=== PATIENT | female | born 1945 | race Caucasian/White ===

== ENCOUNTER → 2017-02-19 | Outpatient (CLI) | payer OTHER ==
[~2017-02-19] MED LIST: AMOX500C3 PO; ANAS1TAB19 PO; ATOR-24 PO; CALC600T9 PO; FISH OIL; HYDR25TA5; LISI-729 PO; METF500T PO; METO25TA3 PO; OMEP20CA59 PO
[2017-02-19 14:24] VITALS: BP 121/76; PULSE 80; TEMP 36.5; O2SAT 96
--- NOTE | 2017-02-19 15:42 | Radiation Oncology Follow-Up ---
Radiation Oncology Follow-Up Date of Visit Feb 19, 2017. Reason For Visit One-month follow-up and cancer survivorship care plan Radiation Completion Date finished 01-14-2017, utilizing hypo - fractionated Diagnosis (1) Carcinoma of central portion of right breast, estrogen receptor positive Status: Resolved Onset Date: 09/25/2016 Histology Subtype: ductal Stage: l (A) Permanent Comment: Abnormal right breast mammogram Status post core needle biopsy 09/25/2016 Invasive mammary carcinoma grade 1 Estrogen receptor positive, progesterone receptor positive, HER-2/aisha negative Status post needle localization partial mastectomy 10/30/2016 Invasive ductal carcinoma Stage pT1c pN0 M0 Prosigna score 22 Status post completion of radiation therapy 01/14/2017. She received 5130 cGy utilizing hypo-fractionation. Last Edited By: Nevin Moore on Jan 21, 2017 14:14 History of Present Illness Ms. Callejas initially had an abnormal mammogram on 09/12/2016 which revealed scattered fibroglandular densities involving the right breast. The patient was brought back on 09/18/2016 for diagnostic unilateral left mammography with ultrasound imaging which confirmed an irregular mass that measured 13 mm in the greatest dimension and was confirmed by ultrasonography. There is no evidence of axillary lymphadenopathy. The patient underwent an ultrasound-guided core biopsy of the right breast mass on 09/25/2016 which revealed invasive ductal carcinoma that was grade 1 and was estrogen receptor positive, progesterone receptor positive and HER-2 negative. The patient was seen at the multidisciplinary breast cancer clinic at [facility] in [place], [place]. The patient ultimately elected to undergo a right breast lumpectomy and sentinel lymph node biopsy by Dr. Shawnee Baron on 10/30/2016. Pathology revealed invasive ductal carcinoma that was grade 1 and measured 1.5 cm in the greatest dimension; there is no evidence of any lymphovascular space invasion. The pathology report noted that the posterior margin was close however unable to document was positive. The margins were initially positive during surgery however Dr. Baron did reexcise the superior margin to obtain a negative margin. As per Dr. Baron's notes, the patient Dr. Baron stated she could not go any further posteriorly due to the pectoralis fascia suggesting that she was able to obtain negative margins. 2 sentinel lymph nodes were excised in both were negative. The patient did have a Prosigna genetic study completed and the patient's score was 22 which placed her in the low risk category. The patient was seen by Dr. Obdulio Peterson for medical oncology who is recommended anti-hormonal therapy and adjuvant radiation therapy. We are now seeing the patient in consultation. She underwent a CT seen in relation. She was found to be a candidate for hypo- fractionation. Radiation was completed 01/14/2017. She received 5130 cGy. Interim History She's been doing well over this past month. She denies any changes to her breast. She noted no masses or tenderness no change of the axilla. She's had no swelling of her arm. She is seen Dr. webster in medical oncology. She is on anastrozole. She denies side effects. She'll be following up with her breast surgeon also. She currently does not have an appointment scheduled. She plans to go on the [employer] portal and set up an appointment with her. She stated the breast surgeon would be scheduling her for mammography. She will be participating in a clinical trial called "detect". She did not develop any further issues with skin irritation following the completion of her treatment. Allergies Uncoded Allergies: nkda (Allergy, Unknown, none, 12/04/16) Home Medications Scheduled Amoxicillin (Amoxil), 4 CAP PO DIRECTED Anastrozole (Arimidex), 1 TAB PO DAILY Atorvastatin (Lipitor), 1 TAB PO DAILY Calcium Carbonate-Vitamin D (Calcium + D), 1 TAB PO BID Hydrochlorothiazide (Hydrochlorothiazide), DAILY Lisinopril (Zestril), 5 MG PO DAILY Metformin Hcl (Glucophage), 500 MG PO BID Metoprolol Succ (Toprol Xl) (Toprol-Xl), 25 MG PO DAILY Omeprazole (Prilosec), 20 MG PO DAILY [eqlomega 3 fish oil], 2 TABS DAILY Review of Systems Gastrointestinal: Symptoms: WNL Oral: Symptoms: No Problems Respiratory: Symptoms: WNL Urinary: Symptoms: Nocturia Comments: nocturia times 1 Skin: Symptoms: No Problems Other Skin Symptoms: " dry skin " Breast: Right Upper Arm Measurement: 32.5 Right Mid Arm Measurement: 26.5 Right Wrist Measurement: 17.2 Left Upper Arm Measurement: 31.0 Left Mid Arm Measurement: 25.5 Left Wrist Measurement: 16.2 Arm Dominence: Right Patient Cosmetic Evaluation: Excellent Staff Cosmetic Evalaluation: Excellent Additional Notes: She completed a distress management report and answered "no" to all questions. Physical Exam Vital Signs Date Time Temp Pulse Resp B/P (MAP) Pulse Ox O2 Delivery O2 Flow Rate FiO2 02/19/17 14:24 36.5 80 16 121/76 96 Pain: Side: Bilateral Patient Pain Scale: 0 - 10 Initial Pain Intensity: 0.0 General Appearance: no apparent distress Eyes: normal inspection, EOMI ENT: normal ENT inspection, hearing grossly normal Neck: no adenopathy, thyroid normal Respiratory/Chest: lungs clear, no respiratory distress, no accessory muscle use Breast: Breast examination reveals well-healed incisions of the right breast. There are no masses or tenderness no axillary adenopathy. There is minimal hyperpigmentation. There are no skin retractions or nipple changes. Using the Morse score cosmesis she has a Outcome. The left breast showed no masses or tenderness and no axillary adenopathy. Abdomen: non tender, soft Extremities: no pedal edema Neurologic/Psychiatric: no motor/sensory deficits, alert, normal mood/affect Skin: warm/dry Assessment & Plan Plan: Continue regular follow-up with her primary care provider, medical oncologist, and breast surgeon. She is going to contact the breast surgeon due to my [employer] portal to set up a follow-up appointment as well as mammography. I've asked her to call our office if she has a difficulty with setting up mammography. She'll continue to get these at [facility]. She continues on the anastrozole. She was seen and examined by Dr. Peterson. Today we completed a cancer survivorship care plan. A copy of the document was given to the patient. She was also given a survivorship booklet. We asked her to return to our office in 6 months. She may call if she has any questions or concerns in the interim. Assessment & Plan (Attending) ADDENDUM: I agree with note created by Nevin Moore PA-C. I reviewed the patient's chart and information with her. I have examined and evaluated the patient. I reviewed relevant clinical information and answered the patient's and /or family's questions. BUSINESS CONTINUITY MANAGER Total Time In Follow-Up I spent 20 minutes speaking to the patient performing examination. I spent 20 minutes reviewing information, preparing the survivorship document, and completing this note. Total Time (Attending) In Follow-Up I spent 15 minutes examining and counseling the patient. BUSINESS CONTINUITY MANAGER Copy To Shawnee Baron M.D.; Pranay Nicole; Obdulio Peterson M.D. Problem Qualifiers (1) Carcinoma of central portion of right breast, estrogen receptor positive: Patient sex: female Qualified Codes: C50.111 - Malignant neoplasm of central portion of right female breast; Z17.0 - Estrogen receptor positive status [ER+]
== END | disposition home or self-care (01) ==
LOC: C.ONC 14:19
PROVIDERS: ATTEND Physician Assistant Medical
DX: Z08 Encounter for follow-up examination after completed treatment for malignant neoplasm (principal); Z92.3 Personal history of irradiation; Z85.3 Personal history of malignant neoplasm of breast

== ENCOUNTER → 2017-08-21 | Outpatient (CLI) | payer OTHER ==
[2017-02-19 14:24] VITALS: BP 121/76; PULSE 80
[~2017-08-21] MED LIST changes: +ASPCH81X PO; -HYDR25TA5; +HYDR25TA5 PO; +OMEG10007 PO
[2017-08-21 12:52] VITALS: BP 116/80; PULSE 80; TEMP 36.4; O2SAT 94
--- NOTE | 2017-08-21 14:33 | Radiation Oncology Follow-Up ---
Radiation Oncology Follow-Up Date of Visit Aug 21, 2017. Reason For Visit Six-month follow-up Radiation Completion Date Hypofractionation 01/14/17 Diagnosis (1) Carcinoma of central portion of right breast, estrogen receptor positive Status: Resolved Onset Date: 09/25/2016 Histology Subtype: Ductal Stage: l (A) Permanent Comment: Abnormal right breast mammogram Status post core needle biopsy 09/25/2016 Invasive mammary carcinoma grade 1 Estrogen receptor positive, progesterone receptor positive, HER-2/aisha negative Status post needle localization partial mastectomy 10/30/2016 Invasive ductal carcinoma Stage pT1c pN0 M0 Prosigna score 22 Status post completion of radiation therapy 01/14/2017. She received 5130 cGy utilizing hypo-fractionation. Last Edited By: Nevin Moore on Jan 21, 2017 14:14 History of Present Illness Ms. Callejas initially had an abnormal mammogram on 09/12/2016 which revealed scattered fibroglandular densities involving the right breast. The patient was brought back on 09/18/2016 for diagnostic unilateral left mammography with ultrasound imaging which confirmed an irregular mass that measured 13 mm in the greatest dimension and was confirmed by ultrasonography. There is no evidence of axillary lymphadenopathy. The patient underwent an ultrasound-guided core biopsy of the right breast mass on 09/25/2016 which revealed invasive ductal carcinoma that was grade 1 and was estrogen receptor positive, progesterone receptor positive and HER-2 negative. The patient was seen at the multidisciplinary breast cancer clinic at [facility] in [place], [place]. The patient ultimately elected to undergo a right breast lumpectomy and sentinel lymph node biopsy by Dr. Shawnee Baron on 10/30/2016. Pathology revealed invasive ductal carcinoma that was grade 1 and measured 1.5 cm in the greatest dimension; there is no evidence of any lymphovascular space invasion. The pathology report noted that the posterior margin was close however unable to document was positive. The margins were initially positive during surgery however Dr. Baron did reexcise the superior margin to obtain a negative margin. As per Dr. Baron's notes, the patient Dr. Baron stated she could not go any further posteriorly due to the pectoralis fascia suggesting that she was able to obtain negative margins. 2 sentinel lymph nodes were excised in both were negative. The patient did have a Prosigna genetic study completed and the patient's score was 22 which placed her in the low risk category. The patient was seen by Dr. Obdulio Peterson for medical oncology who is recommended anti-hormonal therapy and adjuvant radiation therapy. We are now seeing the patient in consultation. She underwent a CT seen in relation. She was found to be a candidate for hypo- fractionation. Radiation was completed 01/14/2017. She received 5130 cGy. Interim History She has been doing well over the past 6 months. She denies any changes to her breast. She has noted no masses or tenderness no change of the axilla. She has had no swelling of her arm. She is up-to-date on mammography. She is on anastrozole. She has been having joint pain and discomfort. She also has cramping of muscles in her legs at night. She plans to review this with medical oncology. She did have some x-rays due to chronic low back pain. Allergies Uncoded Allergies: nkda (Allergy, Unknown, none, 12/04/16) Home Medications Scheduled Amoxicillin (Amoxil), 4 CAP PO DIRECTED Anastrozole (Arimidex), 1 TAB PO DAILY Aspirin (Aspirin Chewable), 81 MG PO DAILY Atorvastatin (Lipitor), 1 TAB PO DAILY Calcium Carbonate-Vitamin D (Calcium + D), 1 TAB PO BID Fish Oil (Oglesby-3), 2,400 MG PO DAILY Hydrochlorothiazide (Hydrochlorothiazide), 25 MG PO DAILY Lisinopril (Zestril), 5 MG PO DAILY Metformin Hcl (Glucophage), 500 MG PO BID Metoprolol Succ (Toprol Xl) (Toprol-Xl), 25 MG PO DAILY Omeprazole (Prilosec), 20 MG PO DAILY Review of Systems Gastrointestinal: Symptoms: WNL Oral: Symptoms: No Problems Respiratory: Symptoms: WNL Urinary: Symptoms: WNL Comments: nocturia times 1 Skin: Symptoms: No Problems Other Skin Symptoms: " dry skin " Breast: Right Upper Arm Measurement: 32.5 Right Mid Arm Measurement: 26.8 Right Wrist Measurement: 17.0 Left Upper Arm Measurement: 31.0 Left Mid Arm Measurement: 26.0 Left Wrist Measurement: 17.0 Arm Dominence: Right Patient Cosmetic Evaluation: Excellent Staff Cosmetic Evalaluation: Excellent Physical Exam Vital Signs Date Time Temp Pulse Resp B/P (MAP) Pulse Ox O2 Delivery O2 Flow Rate FiO2 08/21/17 12:52 36.4 80 16 116/80 94 Fatigue: None General Appearance: no apparent distress Eyes: normal inspection, EOMI ENT: normal ENT inspection, hearing grossly normal Neck: no adenopathy, thyroid normal Respiratory/Chest: lungs clear, no respiratory distress, no accessory muscle use Breast: Breast examination reveals well-healed incisions of the right breast. There are no masses or tenderness no axillary adenopathy. She has no skin retractions or nipple changes. There is slight telangiectasia at the axillary incision. Using the Grayslake score cosmesis she has a good outcome. The left breast showed no masses or tenderness and no axillary adenopathy. Cardiovascular: regular rate, rhythm, no gallop, no murmur Extremities: no pedal edema Neurologic/Psychiatric: no motor/sensory deficits, alert, normal mood/affect Skin: warm/dry Pain Management Patient Reports Pain: No Side: Bilateral Patient Preferred Pain Scale: 0 - 10 Initial Pain Intensity: 0.0 Pain Management Plan Leg cramping at night she did not give this a pain level. She currently is without pain. Laboratory Laboratory Results: not applicable Pathology Pathology Results: were reviewed, and pertinent findings noted in HPI Imaging Imaging Studies: were reviewed, and pertinent findings noted below Imaging Comments Date/Time of Imaging Study Study Completed: 07/29/2017 8:50 AM [employer] PACS Image Narrative EXAM LUMBOSACRAL SPINE 2 OR 3 VIEWS-07/29/2017 8:50 am HISTORY: Lower back sprain. TECHNIQUE: Three views. COMPARISON: None. FINDINGS: Multilevel spine DDD, at least moderate in severity at some LS levels. While potential summation of shadows, given subtle sclerosis in the visualized portions of bilateral femur heads, suspicion for AVN. Similarly, slight bilateral hip joint space narrowing. At least minimal SI joint osteoarthrosis, given subchondral sclerosis and osteophytosis, more prominent on the right. Aortoiliac atheromatous disease. Authenticated By Authenticating Date Authenticating Time Reading Providers(s) MARK VALDERRAMA MD 07-29-2017 19:26 MARK VALDERRAMA MD IMPRESSION: Multilevel spine DDD, with other findings as above. Date/Time of Imaging Study Study Completed: 03/26/2017 9:36 AM [employer] PACS Image Narrative Hx of right breast cancer dx in September 2016 w/ lumpectomy in October 2016, benign sentinel node bx, rad. tx completed 2016 & currently taking arimedex. This is patients initial mammogram after surgery in October,. Comparison is made to images from 09/25/2016 and images from 09/18/2016 and images from 09/12/2016 (bilateral). Right Breast Findings: There are scattered fibroglandular densities (25% - 50% fibroglandular). Post surgical changes related to breast conserving surgery for carcinoma are noted in the upper inner posterior depth and axilla. No dominant mass or clustered microcalcifications suspicious for malignancy are identified. Authenticated By Authenticating Date Authenticating Time Reading Providers(s) ALIDA GAUTAM MD 03-26-2017 16:38 ALIDA GAUTAM MD IMPRESSION: RIGHT BREAST: Findings are probably benign. Short interval follow-up Bilateral Diagnostic Mammogram is recommended in 6 months/Sep, 2017 at which time patient will be due for her annual followup mammogram. Note: Approximately 10% of breast cancers are not detected on mammography. A negative mammographic report should not delay biopsy if a clinically suggestive mass is present. This mammogram has been analyzed with the computer aided detection system. Tomosynthesis was done. This notice contains the results of your recent mammogram, including information about breast density. If your mammogram shows that your breast tissue is dense, you should know that dense breast tissue is a common finding and is not abnormal. Statistics show many women could have dense or highly dense breasts. Dense breast tissue can make it harder to find cancer on a mammogram and may be associated with an increased risk of cancer. This information about the result of your mammogram is given to you to raise your awareness and to inform your conversations with your physician. Together, you can decide which screening options are right for you, based on your mammogram results, individual risk factors or physical examination. A report of your results was sent to your physician. Your mammographic breast density on today's study is described above. There are four categories of breast density on mammography. Fatty breasts and those with scattered fibroglandular tissue are not considered dense. Heterogeneously dense or extremely dense tissue is considered "dense". Please understand that assessment of breast density may vary from year to year. OVERALL ASSESSMENT - CATEGORY 3 - PROBABLY BENIGN END OF IMPRESSION Assessment & Plan She will continue mammography as scheduled. She has mammogram currently scheduled for October 01, 2017. She continues on anastrozole and follow-up with medical oncology. She is going to discuss with them at her next visit her current arthralgias. Discussed stretching exercises for her legs to help with discomfort at night. She was seen and examined by Dr. Peterson. We asked her to return to our office in 1 year. She may call if she has any questions or concerns in the interim. Total Time In Follow-Up I spent 20 minutes speaking to the patient in performing examination. I spent 15 minutes reviewing information and completing this note. [place] Copy To Pranay Nicole; Obdulio Peterson M.D. Problem Qualifiers (1) Carcinoma of central portion of right breast, estrogen receptor positive: Patient sex: female Qualified Codes: C50.111 - Malignant neoplasm of central portion of right female breast; Z17.0 - Estrogen receptor positive status [ER+]
== END | disposition home or self-care (01) ==
LOC: C.ONC 12:40
PROVIDERS: ATTEND Physician Assistant Medical
DX: Z08 Encounter for follow-up examination after completed treatment for malignant neoplasm (principal); Z92.3 Personal history of irradiation; Z85.3 Personal history of malignant neoplasm of breast

== ENCOUNTER 2019-03-03 06:55 | Observation (INO) ==
[2019-03-03] MEDS ORDERED: NiCARDipine HCL INJ 2.5 MG/ML 10 ML AMP ONE (07:09)
[2019-03-03] MEDS ORDERED: HEPARIN (PORCINE) 1000 UNIT/ML 10 ML (CATH LAB USE ONLY) ONE (07:09)
[2019-03-03] MEDS ORDERED: fentaNYL citrate 100 MCG/2 ML VIAL ONE (07:09)
[2019-03-03] MEDS ORDERED: MIDAZOLAM HCL 1 MG/ML 2ML VIAL ONE ×2 (07:10→08:58)
[2019-03-03] MEDS ORDERED: NITROGLYCERIN/D5W 100MCG/ML 20ML SYR ONE (07:10)
--- NOTE | 2019-03-03 08:09 | History & Physical Bridge Note ---
Date of Service March 03, 2019 History & Physical Bridge Note I have examined the patient, reviewed the History & Physical and in the interval since the performance of the History & Physical I have noted the following changes of clinical significance: no changes noted
--- NOTE | 2019-03-03 08:10 | Pre Anesthesia Assessment ---
Date of Service March 03, 2019 Pre Sedation Assessment Vital Signs Temp Pulse Resp BP Pulse Ox 03/04/19 08:00 92 H 23 03/04/19 07:43 36.4 C L 80 23 166/81 H 96 03/04/19 04:00 36.5 C 72 17 112/60 92 03/04/19 02:00 73 20 110/65 93 03/04/19 00:00 36.7 C 81 20 122/67 93 03/03/19 22:00 90 24 117/75 95 03/03/19 20:19 36.8 C 83 22 123/71 94 03/03/19 16:00 36.8 C 76 18 164/85 H 98 03/03/19 14:15 79 16 120/63 93 03/03/19 13:15 74 19 124/68 94 03/03/19 12:00 72 18 124/72 97 03/03/19 11:45 69 21 132/72 96 03/03/19 11:30 71 16 121/69 96 03/03/19 11:15 74 29 H 126/72 95 03/03/19 11:00 74 63 H 137/67 94 03/03/19 10:45 74 30 H 107/67 94 03/03/19 10:33 36.5 C 71 28 H 127/62 95 Cardiovascular + regular rhythm + S1 normal, + S2 normal and + murmur Respiratory normal respiratory effort, lungs clear to auscultation Pre-Sedation Airway Assessment Smoking Status: Never smoker Short, Thick Neck: No Thyromental Distance: > or= 3.5 Finger Breadths Oral Cavity: + WNL Mallampati Class: II ASA: ASA3 NPO Status Date of Last Intake of Fluids: 03/02/19 Time of Last Intake of Fluids: 18:00 Date of Last Intake of Solid Food: 03/02/19 Time of Last Intake of Solid Foods: 18:00 Procedure Planning Contraindications for Sedation: none (fentanyl allergy) Current Medications Reviewed: Yes Notes The planned sedation has been discussed with the patient. Informed Consent was obtained. I have identified the patient, determined the appropriateness of sedation and have assessed the patient immediately prior to the procedure. All medicine(s) and interventions are by my order.
--- NOTE | 2019-03-03 09:13 | Post Anesthesia Assessment ---
Date of Service March 03, 2019 Post Sedation Assessment Vital Signs Temp Pulse Resp BP Pulse Ox 03/04/19 08:00 92 H 23 03/04/19 07:43 36.4 C L 80 23 166/81 H 96 03/04/19 04:00 36.5 C 72 17 112/60 92 03/04/19 02:00 73 20 110/65 93 03/04/19 00:00 36.7 C 81 20 122/67 93 03/03/19 22:00 90 24 117/75 95 03/03/19 20:19 36.8 C 83 22 123/71 94 03/03/19 16:00 36.8 C 76 18 164/85 H 98 03/03/19 14:15 79 16 120/63 93 03/03/19 13:15 74 19 124/68 94 03/03/19 12:00 72 18 124/72 97 03/03/19 11:45 69 21 132/72 96 03/03/19 11:30 71 16 121/69 96 03/03/19 11:15 74 29 H 126/72 95 03/03/19 11:00 74 63 H 137/67 94 03/03/19 10:45 74 30 H 107/67 94 03/03/19 10:33 36.5 C 71 28 H 127/62 95 Recovery Score Activity: Moves 4 extremities Respiration: Deep Breath/Cough Circulation: +/-20% PreAnes Value Consciousness: Fully Awake Oxygen Saturation: > 92% On Room Air Post Sedation Plan On clinical assessment, the patient appears to have tolerated the sedation without complications. Patient is recovering as anticipated. Patient will continue to be monitored by nursing and may be discharged when sedation discharge criteria are met per below protocol. Upon Completions of procedure and additional 15 minutes continue every 5 minute vital signs and the P.A.R. score; then discharge to a Phase I or Fast Track to Phase II per the following guidelines: * Discharge Patient to appropriate Phase II area if PAR is 8 or greater or return to pre- procedure baseline. The post - procedure orders will be as directed. * If PAR score is less than 8 or not return to pre-procedure baseline then patient will follow Phase I monitoring till PAR is reached for Phase II. The Phase I may be done in procedure room or may call to secure a Phase I area. * If naloxone or flumazenil are used for reversal, hold in Phase I for continued monitoring from when last reversal dose was given for a minimum of 60 minutes or longer pending the nurse and/or physician discretion of patient condition before discharge to Phase II. Please call the Sedation Physician to re-evaluate and complete post-note for discharge to Phase II area. Do NOT discharge from procedure sedation or Phase 1 until post- sedation evaluation note is complete by procedure /sedation MD Sedation Discharge Instructions to be given to the patient at discharge to home.
--- NOTE | 2019-03-03 09:23 | Cardiac Catheterization ---
Cardiac Cath Procedure Full Procedure Date March 03, 2019 Pre-Procedure Diagnosis Pre-Procedure Diagnosis: Positive Stress Test, Valvular Disease and Cardiothoracic Symptom AUC Score AUC Score: 7 Post-Procedure Diagnosis Post-Procedure Diagnosis: Severe CAD Procedure(s) Performed Procedure(s) Performed: Coronary Angiography, Bypass Graft Angiography and Femoral Artery Angiography Screener Perfumer Steve Egan DO Database Reporting Consultant(s) Ronnie TOPPIECE CHOPPER Estimated Blood Loss Estimated Blood Loss: 5cc Medication(s) Medication(s): Lidocaine 1% and Versed Summary of Findings 80% proximal OM2 50% ostial OM1 50% proximal LAD unchanged compared to previous study. 100% proximal RCA. Patent SVG to RCA Hemodynamics Rest Ao:: 108/49/73 Final Ao: 130/59/86 LV: N/A Recommendations Recommendations: PCI without planned CABG Specimens Specimens: None Radiation Exposure (mGy) 1441 Contrast (mls) 60 Fluids (cc crystalloids) Fluids (cc crystalloids): 80 Nss Anesthesia Moderate sedation. Start 0824. End 0903. Sedation monitor: Rao GREEN Procedural Complication(s) None I attest to the content of the Intraoperative Record and any orders documented therein. Any exceptions are noted below. ACC Data: Media Account Executive Cardiac Status Clinical evaluation leading to the procedure CAD Presenation: Positive Stress Test Anginal Classification: CCS II Heart Failure: No Stress Testing w/SPECT MPI: Yes - Positive and Risk/Extent of Ischemia (Intermediate) Coronary Anatomy Dominant: Right Left Main (% Stenosis): Normal LAD (% Stenosis): Proximal (50% at septal after school program director followed by diffuse 30%) and Distal (30%) D1 (% Stenosis): Normal D2 (% Stenosis): Ostial (30%) and Proximal (20%) Circumflex (% Stenosis): Proximal (30%) and Mid (40% at origin of OM1) OM1 (% Stenosis): Ostial (50%) OM2 (% Stenosis): Proximal (80%) L PL1 (% Stenosis): Normal RCA (% Stenosis): Proximal (100%) R PDA (% Stenosis): Normal Grafts - RCA (%): Mid (Mild diffuse luminal irregularities throughout the vessel, 10%) Diagnostic Physicians Name: Steve Egan DO Status: Elective Closure Device Percutaneous Entry Location: Femoral Recommendations: PCI without planned CABG Intraprocedure Events Significant Disection: No Perforation: No
[2019-03-03] MEDS ORDERED: CLOPIDOGREL BISULFATE 300 MG TAB ONE (09:44)
--- NOTE | 2019-03-03 09:48 | Post Anesthesia Assessment ---
Date of Service March 03, 2019 Post Sedation Assessment Vital Signs Temp Resp 03/03/19 07:13 97.5 F L 17 Recovery Score Activity: Moves 4 extremities Respiration: Deep Breath/Cough Circulation: +/-20% PreAnes Value Consciousness: Fully Awake Oxygen Saturation: > 92% On Room Air Discharge Sedation Level of Care: Fast Track Phase II Post Sedation Plan On clinical assessment, the patient appears to have tolerated the sedation without complications. Patient is recovering as anticipated. Patient will continue to be monitored by nursing and may be discharged when sedation discharge criteria are met per below protocol. Upon Completions of procedure and additional 15 minutes continue every 5 minute vital signs and the P.A.R. score; then discharge to a Phase I or Fast Track to Phase II per the following guidelines: * Discharge Patient to appropriate Phase II area if PAR is 8 or greater or return to pre- procedure baseline. The post - procedure orders will be as directed. * If PAR score is less than 8 or not return to pre-procedure baseline then patient will follow Phase I monitoring till PAR is reached for Phase II. The Phase I may be done in procedure room or may call to secure a Phase I area. * If naloxone or flumazenil are used for reversal, hold in Phase I for continued monitoring from when last reversal dose was given for a minimum of 60 minutes or longer pending the nurse and/or physician discretion of patient condition before discharge to Phase II. Please call the Sedation Physician to re-evaluate and complete post-note for discharge to Phase II area. Do NOT discharge from procedure sedation or Phase 1 until post- sedation evaluation note is complete by procedure /sedation MD Sedation Discharge Instructions to be given to the patient at discharge to home.
[2019-03-03] MEDS ORDERED: ONDANSETRON INJ 2 MG/ML 2 ML VIAL IV PRN (09:54)
--- NOTE | 2019-03-03 09:54 | Cardiac Catheterization ---
[facility] Data: Chop Saw Operator Cardiac Status Clinical evaluation leading to the procedure CAD Presenation: Positive Stress Test Anginal Classification: CCS III Heart Failure: No Cardiogenic Shock within 24 Hours: No Cardiac Arrest within 24 Hours: No Imaging Studies Past 6 Months: Yes Stress Studies Past 6 Months: Yes Stress Testing w/SPECT MPI: Yes - Negative Diagnostic Physicians Name: Chaparro Salgado MD Closure Device Percutaneous Entry Location: Radial Closure Device: Radial Band Recommendations: PCI without planned CABG PCI Indication: Stable Angina Lesion Segment Name: Proximal OM 2 Culprit Artery: Yes Stenosis Prior to Rx (%): 80 Pre-Procedure KATELYNN Flow: 3 Previously Treated Lesion: No Lesion Complexity: Non-High/Non-C Lesion Length (mm): 15 Thrombus Present: No Bifurcation Lesion: Yes Guidewire Across Lesion: Stenosis Post-Procedure (%): 0 Post-Procedure KATELYNN Flow: 3 Devices(s) Deployed: Yes Yes Intraprocedure Events Significant Disection: No Perforation: No Cardiac Cath Procedure Full Procedure Date March 03, 2019 Pre-Procedure Diagnosis Pre-Procedure Diagnosis: Positive Stress Test, Valvular Disease and Cardiothoracic Symptom AUC Score AUC Score: 7 Post-Procedure Diagnosis Post-Procedure Diagnosis: Severe CAD and Successful PCI Procedure(s) Performed Procedure(s) Performed: Coronary Angiography and Drug Eluting Stent Facing Baster Chaparro Salgado MD Aboriginal Education Worker Coordinator(s) Ronnie AKERS Estimated Blood Loss Estimated Blood Loss: 15 Medication(s) Medication(s): Clopidogrel, Fentanyl, Heparin, Lidocaine 1%, Nicardipine, Nitroglycerin and Versed Summary of Findings 80% proximal OM2 50% ostial OM1 50% proximal LAD unchanged compared to previous study. 100% proximal RCA. Patent SVG to RCA Indication: Abnormal stress test, stable angina Access: 6 Fr right common femoral artery Catheters: EBU 3.75 guide Findings: For full details of patient's coronary angiography please cath report dictated by Dr. Egan. Briefly, patient found to have a patent vein graft to RCA, moderate unchanged mid LAD disease and a new 80% stenosis involving proximal OM 2 at bifurcation with OM1. Decision to proceed with PCI. -- PCI -- Antithrombotic therapy: Heparin, clopidogrel Procedure: Left main cannulated with EBU 3.75 guide Floorhand 50 wire passed across lesion into distal OM 2 Whisper wire passed across ostial OM1 lesion into distal vessel Proximal OM 2 lesion predilated with 2.0 compliant balloon Dilated lesion stented with 2.5 x 18 mm [place] drug-eluting stent into OM 2 OM1 rewired with whisper wire Stent post-dilated with 2.75 noncompliant balloon IC vasodilators administered for spasm KATELYNN-3 flow but significant residual stenosis at ostium of OM1 dilated with 2.0 balloon Post procedure KATELYNN 3 flow, stent well expanded with minimal residual stenosis and no apparent cardiac complications. Moderate residual OM1 stenosis with KATELYNN-3 flow. Arterial Closure: TR band Summary: 1. Successful PCI of proximal OM2 with single drug-eluting stent (2.5 x 18 mm [place]; postdilated with 2.75 NC). -PTCA of ostial OM1 with 2.0 balloon Recommendations: To PCU for continued monitoring Loaded with clopidogrel 600 mg in seed laboratory assistant Continue dual-antiplatelet therapy for at least 6 months Continue statin, and ASCVD risk factor modification Consult cardiac Rehab Hemodynamics Rest Ao:: 130/55/85 Final Ao: 129/64/91 LV: -- Recommendations Recommendations: PCI without planned CABG Specimens Specimens: None Radiation Exposure (mGy) 3300 Contrast (mls) 60 Fluids (cc crystalloids) Fluids (cc crystalloids): 70 Anesthesia Moderate sedation. Procedural Complication(s) None Disposition PCU I attest to the content of the Intraoperative Record and any orders documented therein. Any exceptions are noted below.
[2019-03-03] MEDS ORDERED: GLUCAGON FOR INJ 1 MG VIAL SQ PRN (09:56)
[2019-03-03] MEDS ORDERED: GLUCOSE 10 TABS/TUBE PO PRN (09:56)
[2019-03-03] MEDS ORDERED: GLUCOSE 40% GEL 15 GM TUBE PO PRN (09:56)
[2019-03-03] MEDS ORDERED: DEXTROSE 50% 50 ML SYRINGE IV PRN (09:56)
[2019-03-03] MEDS ORDERED: CARBOHYDRATES FOR HYPOGLYCEMIA PO PRN (09:56)
[2019-03-03] MEDS ORDERED: SODIUM CHLORIDE 0.9% 1000ML 1,000 ML IV SCH (10:00)
[2019-03-03] MEDS: INSULIN ASPART 100 UNITS/ML 3 ML PEN SC SCH ×3 (12:19→21:03)
[2019-03-03] MEDS: CALCIUM 600MG + VIT D 400 IU TAB PO SCH (20:59)
[2019-03-04 04:24] LABS: Basophils # (auto) 0.02 K/uL (0-0.2); Basophils % (auto) 0.3 %; Eosinophils % (auto) 3.4 %; Hematocrit (blood only) 36.8 % (37-47); Hemoglobin 12.4 g/dL (12.0-16.0); Immature Granulocytes # (auto) 0.02 K/uL (0.00-0.02); Immature Granulocytes % (auto) 0.3 %; Lymphocytes # (auto) 1.44 K/uL (1.2-3.4); Lymphocytes % (auto) 24.3 %; Mean Corpuscular Hemoglobin 30.2 pg (25-34); Mean Corpuscular Hgb Conc 33.7 g/dL (32-36); Mean Corpuscular Volume 89.8 fL (80-100); Mean Platelet Volume 10.1 fL (7.4-10.4); Monocytes # (auto) 0.46 K/uL (0.11-0.59); Monocytes % (auto) 7.8 %; Neutrophils # (auto) 3.78 K/uL (1.4-6.5); Neutrophils % (auto) 63.9 %; Platelet Count 160 K/uL (130-400); RDW Coefficient of Variation 13.1 % (11.5-14.5); RDW Standard Deviation 42.8 fL (36.4-46.3); White Blood Count 5.92 K/uL (4.8-10.8)
[2019-03-04 04:51] LABS: BUN Creatinine Ratio 22.9 (10-20); Calcium 8.3 mg/dl (8.5-10.1); Creatinine Clr Calc Pharmacy 59.8 ml/min; Est GFR (African American) 84.7; Est GFR (Non-African American) 73.1
[2019-03-04] MEDS: INSULIN ASPART 100 UNITS/ML 3 ML PEN SC SCH ×2 (08:57→11:22)
[2019-03-04] MEDS: ATORVASTATIN 40 MG TAB PO SCH ×2 (08:58→10:13)
[2019-03-04] MEDS: CALCIUM 600MG + VIT D 400 IU TAB PO SCH (08:58)
[2019-03-04] MEDS ORDERED: ASPIRIN 81 MG CHEW PO SCH (09:00)
[2019-03-04] MEDS ORDERED: PANTOprazole 40 MG TAB PO SCH (09:00)
[2019-03-04] MEDS ORDERED: LISINOPRIL 5 MG TAB PO SCH (09:00)
[2019-03-04] MEDS ORDERED: TAMOXIFEN CITRATE 10 MG TABLET PO SCH (09:00)
[2019-03-04] MEDS ORDERED: hydroCHLOROthiazide 25 MG TAB PO SCH (09:00)
[2019-03-04] MEDS ORDERED: METOPROLOL SUCC 25MG EXT REL TAB PO SCH (09:00)
[2019-03-04] MEDS ORDERED: CLOPIDOGREL BISULFATE 75 MG TAB PO SCH (09:00)
[2019-03-04] MEDS ORDERED: METOPROLOL SUCC 25MG EXT REL TAB PO STA (10:21)
--- NOTE | 2019-03-04 10:37 | Cardiology Progress Note ---
Date of Service March 04, 2019 Assessment & Plan (1) Presence of drug coated stent in left circumflex coronary artery: (2) Abnormal nuclear stress test: (3) HTN (hypertension): (4) Dyslipidemia, goal LDL below 70: (5) S/P CABG x 1: Increase Toprol-XL to 50 mg daily. Atorvastatin will be titrated to 80 mg daily as well. Other cardiovascular medications will be continued as previously ordered. Discussed importance of continuing dual antiplatelet therapy for minimum of 6 months post percutaneous intervention, preferably 1 year. Post cardiac catheterization restrictions discussed. All questions answered to satisfaction of both patient and her family. Outpatient cardiology follow-up in 2 weeks. Subjective Patient seen and examined the bedside. Feeling well from a cardiovascular perspective. Elevated blood pressure and heart rate noted this morning. Patient reports mildly elevated heart rates over the past few months. Denies palpitations. Status post cardiac catheterization with drug-eluting stent implantation to the proximal OM 2 as well as PTCA of OM1 03/03/19. Tolerating medications. Offers no other complaints at this time. Review of Systems Review of Systems: All systems reviewed & are unremarkable except as noted in HPI & below Physical Exam Physical Exam: General: NAD, AAO x3, well nourished. HEENT: Normocephalic. Atraumatic. Conjunctiva pink, no scleral icterus. Neck: No carotid bruits, the carotid upstrokes are brisk. No JVD. No HJR Heart: Regular normal S-1 and S-2 no S-3 or S-4 gallop. No murmurs or rub appreciated. PMI is not displaced. No RV heave. Lungs: Clear bilateral without rales , rhonchi, or wheeze. Abdomen: Normal bowel sounds. Soft. Nontender. No masses or organomegaly. No abdominal bruits. Extremities: + Right groin ecchymosis. No hematoma. No clubbing, cyanosis, or edema. Pulses: radial=2/4, Dorsalis pedis =2/4, posterior tibial=2/4. Neuro: Cranial nerves grossly intact. No focal motor deficit. Results & Data Vital Signs (Past 12 Hours) Vital Signs Temp Pulse Resp BP Pulse Ox 03/04/19 08:00 92 H 23 03/04/19 07:43 36.4 C L 80 23 166/81 H 96 03/04/19 04:00 36.5 C 72 17 112/60 92 03/04/19 02:00 73 20 110/65 93 03/04/19 00:00 36.7 C 81 20 122/67 93 Laboratory Results Laboratory Results - last 24 hr 03/03/19 03/03/19 03/03/19 10:20 11:44 16:41 WBC RBC Hgb Hct MCV MCH MCHC RDW Std Deviation RDW Coeff of [place] Plt Count MPV Immature Gran % (Auto) Neut % (Auto) Lymph % (Auto) [place] % (Auto) Eos % (Auto) Baso % (Auto) Immature Gran # (Auto) Neut # (Auto) Lymph # (Auto) [place] # (Auto) Eos # (Auto) Baso # (Auto) Sodium Potassium Chloride Carbon Dioxide Anion Gap BUN Creatinine Est Cr Clr Drug Dosing Est GFR ( Amer) Est GFR (Non-Af Amer) BUN/Creatinine Ratio Glucose POC Glucose 106 H 118 H Calcium Nasal Screen MRSA (PCR) Negative 03/03/19 03/04/19 03/04/19 21:02 04:03 04:03 WBC 5.92 RBC 4.10 L Hgb 12.4 Hct 36.8 L MCV 89.8 MCH 30.2 MCHC 33.7 RDW Std Deviation 42.8 RDW Coeff of [place] 13.1 Plt Count 160 MPV 10.1 Immature Gran % (Auto) 0.3 Neut % (Auto) 63.9 Lymph % (Auto) 24.3 [place] % (Auto) 7.8 Eos % (Auto) 3.4 Baso % (Auto) 0.3 Immature Gran # (Auto) 0.02 Neut # (Auto) 3.78 Lymph # (Auto) 1.44 [place] # (Auto) 0.46 Eos # (Auto) 0.20 Baso # (Auto) 0.02 Sodium 139 Potassium 4.0 Chloride 106 Carbon Dioxide 27 Anion Gap 6.0 BUN 19 H Creatinine 0.81 Est Cr Clr Drug Dosing 59.8 Est GFR ( Amer) 84.7 Est GFR (Non-Af Amer) 73.1 BUN/Creatinine Ratio 22.9 H Glucose 132 H POC Glucose 125 H Calcium 8.3 L Nasal Screen MRSA (PCR) 03/04/19 07:39 WBC RBC Hgb Hct MCV MCH MCHC RDW Std Deviation RDW Coeff of [place] Plt Count MPV Immature Gran % (Auto) Neut % (Auto) Lymph % (Auto) [place] % (Auto) Eos % (Auto) Baso % (Auto) Immature Gran # (Auto) Neut # (Auto) Lymph # (Auto) [place] # (Auto) Eos # (Auto) Baso # (Auto) Sodium Potassium Chloride Carbon Dioxide Anion Gap BUN Creatinine Est Cr Clr Drug Dosing Est GFR ( Amer) Est GFR (Non-Af Amer) BUN/Creatinine Ratio Glucose POC Glucose 125 H Calcium Nasal Screen MRSA (PCR)
[2019-03-04] MEDS ORDERED: ATORVASTATIN 40 MG TAB PO SCH (11:00)
--- NOTE | 2019-03-04 11:20 | Discharge Summary ---
Date of Service March 04, 2019 Admission HPI Per Admitting Provider Patient presented to hospital for elective cardiac catheterization with bypass graft angiography secondary to abnormal nuclear stress test. Cardiac catheterization revealed severe left circumflex disease. Patient underwent successful drug-eluting stent implantation to the left circumflex. Please see separate report for details. Principal Diagnosis Unstable angina Abnormal DEXA scan nuclear stress test Coronary artery disease with prior coronary artery bypass grafting x1 to the right coronary artery. History of bioprosthetic aortic valve replacement with borderline elevated gradients. Discharge Exam General: NAD, AAO x3, well nourished. HEENT: Normocephalic. Atraumatic. Conjunctiva pink, no scleral icterus. Neck: No carotid bruits, the carotid upstrokes are brisk. No JVD. No HJR Heart: Regular normal S-1 and S-2 no S-3 or S-4 gallop. No murmurs or rub appreciated. PMI is not displaced. No RV heave. Lungs: Clear bilateral without rales , rhonchi, or wheeze. Abdomen: Normal bowel sounds. Soft. Nontender. No masses or organomegaly. No abdominal bruits. Extremities: + Right groin ecchymosis. No hematoma. No clubbing, cyanosis, or edema. Pulses: radial=2/4, Dorsalis pedis =2/4, posterior tibial=2/4. Neuro: Cranial nerves grossly intact. No focal motor deficit. Discharge Data Allergies Allergy/AdvReac Type Severity Reaction Status Date / Time fentanyl AdvReac Vomiting Verified 03/03/19 07:31 Consultations 03/03/19 09:55 Consult Cardiac Rehabilitation Routine Procedures Performed Operation Date: 03/03/19 08:00 Actual Procedures p Cath, Cors with Grafts (no LV) - DO bernice Storm Cineradiography w/Routine Exam - DO bernice Storm Drug Eluting Stent SGl Vessel - Lenard Salgado MD Ordered Studies 03/03/19 06:37 CL Cath Imgs for PACS use only Routine Hospital Course (1) Presence of drug coated stent in left circumflex coronary artery: (2) Abnormal nuclear stress test: (3) HTN (hypertension): (4) Dyslipidemia, goal LDL below 70: (5) S/P CABG x 1: Increase Toprol-XL to 50 mg daily. Atorvastatin will be titrated to 80 mg daily as well. Other cardiovascular medications will be continued as previously ordered. Discussed importance of continuing dual antiplatelet therapy for minimum of 6 months post percutaneous intervention, preferably 1 year. Post cardiac catheterization restrictions discussed. All questions answered to satisfaction of both patient and her family. Outpatient cardiology follow-up in 2 weeks. Total Time Total Time Spent Total Time Spent (In Minutes): 30 Total Time Includes: Examination of the Patient, Discharge Planning, Medication Reconciliation and Other Discharge Plan Discharge Items Patient Disposition: Home - Self-Care Reason For Visit: Abnormal Nuclear Stress; Dyspnea Discharge Diagnosis: S/p cardiac catheterization S/p drug-eluting stent implantation to OM2 and balloon angioplasty of OM1. Activity: Per Instructions section Non-emergency contact: Primary Care Provider and Boiler House Operator Call non-emergency contact if: you have any medication questions, your symptoms worsen and your pain is not controlled Follow-up/Referrals: Pranay Nicole PA-C [Primary Care Provider] - Diet: Heart Healthy Addtl Attending Provider Instructions: ACTIVITY RECOMMENDATIONS: It is common to feel weak and fatigue for a few days. * Do not drive or operate any motorized equipment for the next three days. * Limit stair usage (2 or 3 trips a day only) for the next three days. * Do not lift anything heavier than 10 pounds for the next three days. * Do not engage in vigorous exercise or any sports for the next five days. * You may shower the day after your procedure, but do not immerse the area for three days. Cleanse the site gently with soap and water. SPECIAL CARE INSTRUCTIONS: * You may replace the pressure dressing or band-aid the morning after the procedure. * After your procedure, it is normal to have a small bruise or small lump at the site. Examine your site daily for any change in the bruise or lump, redness, swelling, drainage or numbness. Notify your doctor if any change. BLEEDING: * If there is a small amount of bleeding at the site, lie down and apply firm pressure with a clean cloth for ten minutes. When the bleeding stops, lie quietly keeping the procedure limb straight for six hours. Notify your doctor as soon as possible. * If the bleeding does not stop after ten minutes or if there is a large amount of bleeding or spurting, call 911 immediately. Continue to lie down and hold firm pressure until help arrives. SKIN IRRITATION: * You may experience some redness and/or swelling in the area where radiation was administered. If any skin irritation occurs, please contact your family physician. FOLLOW UP VISIT: Keep any scheduled doctor appointments. Pending Studies at Discharge: No Stand-Alone Forms: My [facility], Smoking Cessation Medications and DC Order Prescriptions: New clopidogrel 75 mg Tablet 75 mg PO QAM Qty: 30 RF: 6 atorvastatin 40 mg Tablet 80 mg PO DAILY Qty: 30 RF: 6 metoprolol succinate 50 mg Tablet Extended Release 24 Hr 50 mg PO DAILY Qty: 30 RF: 6 Continued LISINOPRIL (ZESTRIL) 5 MG tablet 5 mg PO DAILY Qty: 0 RF: 0 METFORMIN HCL (GLUCOPHAGE) 500 MG tablet 500 mg PO BID Qty: 0 RF: 0 OMEPRAZOLE (Prilosec) 20 MG CONTR REL CAP 20 mg PO DAILY Qty: 0 RF: 0 AMOXICILLIN (AMOXIL) 500 MG capsule 4 cap PO DIRECTED 10 Days Qty: 0 RF: 0 CALCIUM CARBONATE-VITAMIN D (CALCIUM + D) 1 TAB tablet 1 tab PO BID Qty: 0 RF: 0 Hydrochlorothiazide 25 MG tablet 25 mg PO DAILY Qty: 0 RF: 0 ASPIRIN (ASPIRIN CHEWABLE) 81 MG CHEWABLE TAB 81 mg PO DAILY Qty: 0 RF: 0 Fish Oil ([place]-3) 1 EA capsule 1,200 mg PO DAILY Qty: 0 RF: 0 tamoxifen 20 mg Tablet 20 mg PO DAILY RF: 0 Discontinued ATORVASTATIN (LIPITOR) 40 MG tablet 1 tab PO DAILY 30 Days Qty: 30 RF: 5 Metoprolol Succ (Toprol Xl) (Toprol-Xl) 25 MG [id number] 25 mg PO DAILY Qty: 30 RF: 0 Discharge Orders: Discharge Order (Routine); Ordered 03/04/19 Ordered By: Steve Egan Admission Data Admit Date/Time: 03/03/19 09:42 Attending Provider: Steve Egan Admit Provider: Steve Egan Primary Care Provider: Pranay Nicole
[2019-03-05] MEDS ORDERED: METOPROLOL SUCC 50MG EXT REL TAB PO SCH (09:00)
[2019-03-05] MEDS ORDERED: ATORVASTATIN 40 MG TAB PO SCH (09:00)
== END 2019-03-04 12:37 | disposition home or self-care (01) ==
LOC: 1E 06:55 → CC 06:55
PROC: CLB.CCG (2019-03-03 08:00)